=== PATIENT | female | born 1990 | race Caucasian/White ===

== ENCOUNTER 2018-05-18 12:56 | Emergency (ER) | payer SELFPAY ==
[2018-05-18 14:39] LABS: BILIRUBIN,URINE NEGATIVE (NEG); CLARITY,URINE CLEAR; COLOR,URINE YELLOW; GLUCOSE,URINE NEGATIVE (NEG); NITRITE,URINE NEGATIVE (NEG); PROTEIN,URINE NEGATIVE (NEG-TRACE); UROBILINOGEN,URINE 0.2 mg/dL (0.2 mg/dL)
[2018-05-18 14:42] LABS: BACTERIA,URINE MODERATE /HPF (0-FEW); RBC,URINE 0 /HPF (0-2); SQUAMOUS EPITHELIAL CELL,UR MANY /LPF; WBC,URINE 0 /HPF (0-4)
[2018-05-18] MEDS ORDERED: AZITHROMYCIN 250 MG TABLET. PO (14:45)
[2018-05-18] MEDS: AZITHROMYCIN 250 MG TABLET. PO (15:10)
[2018-05-18] MEDS: metroNIDAZOLE 500 MG TABLET PO (15:10)
[2018-05-18] MEDS: ONDANSETRON ODT 4 MG TAB.RAPDIS. PO (15:14)
[2018-05-19 06:53] LABS: URINE HCG POC HCG NEGATIVE (Negative)
[2018-05-20 14:31] LABS: CHLAMYDIA PROBE Negative (Negative); GC PROBE Negative (Negative)
== END 2018-05-18 16:03 | disposition home or self-care (01) ==
LOC: ER 12:56
DX: N76.0 Acute vaginitis (principal); B96.89 Other specified bacterial agents as the cause of diseases classified elsewhere; Z20.2 Contact with and (suspected) exposure to infections with a predominantly sexual mode of transmission; Z88.0 Allergy status to penicillin
CPT/HCPCS: 81001; 81025; 87086; 87491; 87591; 99284; Q0111; Q0144; Q0162

== ENCOUNTER 2021-04-26 13:07 | Emergency (ER) | payer MEDICAID ==
[~2021-04-26] VITALS: Ht 167.6 cm; Wt 60.0 kg
[~2021-04-26 13:07] MED LIST: METR500T PO; ONDA4TAB10 SL
--- NOTE | 2021-04-26 17:26 | PHYS DOC ---
Past Medical History Past Medical History: Other Additional Past Medical Histor: Degenerative disc disease Past Surgical History: Other Additional Past Surgical Histo: TUBAL Smoking Status: Never Smoker Alcohol Use: None Drug Use: None General Adult EDM: Chief Complaint: OTHER COMPLAINTS HPI: HPI: Patient is a 30 year old female with several year history of degenerative disc disease and right-sided radicular symptoms who presents with new progressive left-sided radicular symptoms over the past several weeks. States that she has had urinary incontinence over the past week on three separate episodes. States that she was sent in by her pain med clinic for an MRI of her lumbar and thoracic spine. She does feel like her left leg has become weaker in number than it had been in the past. No fevers or chills. No IVDU. States that she is being worked up for a nerve stimulator. Review of Systems: Review of Systems: Constitutional: Denies fever or chills. [] Eyes: Denies change in visual acuity. [] HENT: Denies nasal congestion or sore throat. [] Respiratory: Denies cough or shortness of breath. [] Cardiovascular: Denies chest pain or edema. [] GI: Denies abdominal pain, nausea, vomiting, bloody stools or diarrhea. [] : Reports new urinary incontinence. Denies dysuria. [] Musculoskeletal: Reports worsening back pain and radicular pain. [] Integument: Denies rash. [] Neurologic: Reports worsening weakness of left lower extremity as well as worsening numbness. [] Endocrine: Denies polyuria or polydipsia. [] Lymphatic: Denies swollen glands. [] Psychiatric: Denies depression or anxiety. [] Heart Score: C/O Chest Pain: N/A Risk Factors: Risk Factors: DM, Current or recent (<one month) smoker, HTN, HLP, family history of CAD, obesity. Risk Scores: Score 0 - 3: 2.5% MACE over next 6 weeks - Discharge Home Score 4 - 6: 20.3% MACE over next 6 weeks - Admit for Clinical Observation Score 7 - 10: 72.7% MACE over next 6 weeks - Early Invasive Strategies Family History: Family History: No pertinent family history Allergies: Allergies: Allergies Coded Allergies Type Severity Reaction Last Updated Verified Penicillins Allergy Intermediate 05/18/18 Yes Physical Exam: PE: Constitutional: Well developed, well nourished, no acute distress, non-toxic appearance. [] HENT: Normocephalic, atraumatic, bilateral external ears normal, oropharynx mois t, no oral exudates, nose normal. [] Eyes: PERRLA, EOMI, conjunctiva normal, no discharge. [] Neck: Normal range of motion, no tenderness, supple, no stridor. [] Cardiovascular:Heart rate regular rhythm, no murmur [] Lungs & Thorax: Bilateral breath sounds clear to auscultation [] Abdomen: Bowel sounds normal, soft, no tenderness, no masses, no pulsatile masses. [] Skin: Warm, dry, no erythema, no rash. [] Back: No tenderness, no CVA tenderness. [] Extremities: No tenderness, no cyanosis, no clubbing, ROM intact, no edema. [] Neurologic: Patient is alert and oriented to person, place, time. Speech is normal. Upper extremity strength is grossly normal. Patient states sensation is decreased in bilateral lower extremities objectively. Exam is somewhat inconsistent. At times she does provide 5/5 resistance bilaterally in: L1-4: adduction of thighs L3-4: extension at knee L4-5: dorsiflexion of ankle L5: Extension of toes S1-S2: Plantarflexion of ankle Psychologic: Affect normal, judgement normal, mood normal. [] EKG: EKG: [] Radiology/Procedures: Radiology/Procedures: MRI thoracic and lumbar spine ordered [] Course & Med Decision Making: Course & Med Decision Making Pertinent Labs and Imaging studies reviewed. (See chart for details) Patient is a 30-year-old female with a history of degenerative disc disease and right-sided radicular pain. She presents with several weeks of worsening left- sided symptoms that are new including numbness, and occasional weakness. She states that she has had urinary incontinence over the past week on 3 separate occasions. No fevers or chills or IVDU to clear her risk for epidural abscess. Given her urinary incontinence I had planned to get an MRI of her lumbar and thoracic spine to exclude cauda equina or other progressive disease. I discussed this plan with Dr. Maxwell, of her outpatient team, who was in agreement. As I was discussing the plan I was informed that she eloped. She reportedly was able to walk briskly out of the ED, which is certainly reassuring against a cord compression syndrome. Dr. Maxwell is aware that she left prior to completing her work up. Mildred Disclaimer: Mildred Disclaimer: This electronic medical record was generated, in whole or in part, using a voice recognition dictation system. Departure Departure Impression: Primary Impression: Back pain Disposition: 07 LEFT AWOL/ELOPED Condition: STABLE Referrals: UNKNOWN PCP NAME (PCP) SAMANTHA SCOTT MD Apr 26, 2021 17:26
[2021-04-26 17:33] VITALS: BP 108/70
== END 2021-04-26 18:05 | disposition left against medical advice (07) ==
LOC: ER 13:07
DX: M54.5 Low back pain (principal); R32 Unspecified urinary incontinence; Z88.0 Allergy status to penicillin
CPT/HCPCS: 99281